=== PATIENT | female | born 1970 | race Caucasian/White ===

== ENCOUNTER 2017-03-04 00:02 | Emergency (ER) | payer OTHER | END 2017-03-04 01:55 | disposition home or self-care (01) | LOC: FER 00:02 | DX: K21.9 Gastro-esophageal reflux disease without esophagitis (principal); F32.9 Major depressive disorder, single episode, unspecified; Z23 Encounter for immunization; Z79.899 Other long term (current) drug therapy; W10.9XXA Fall (on) (from) unspecified stairs and steps, initial encounter | CPT/HCPCS: 73564; 73660; 90471; 90715 ==

== ENCOUNTER 2022-02-28 11:19 | Emergency (ER) | payer OTHER ==
[~2022-02-28 11:19] MED LIST: ONDANSETRON ODT4 MG PO
[2022-02-28 12:15] LABS: EOSINOPHIL 1.8 % (0-5); HCT 45.1 % (37.0-47.0); HGB 15.1 g/dl (12.5-16.0); LYMPHOCYTE 21.2 % (15-48); MCH 32.6 pg (25.0-31.0); MCHC 33.5 g/dL (32.0-36.0); MCV 97.4 fL (78.0-100.0); MPV 11.3 fL (6.0-9.5); NEUTROPHIL 66.6 % (41-80); NRBC 0; PLT 284 K/uL (150-400); RBC 4.63 M/uL (4.20-5.40); RDW 12.7 % (11.5-14.0); WBC 5.1 K/uL (4.0-10.5)
[2022-02-28 12:20] LABS: INR 0.94 (0.9-1.2); PTT 27.9 SECONDS (24.4-34.7)
[2022-02-28 12:33] LABS: ALBUMIN 3.9 g/dL (3.4-5.0); BILIRUBIN - TOTAL 0.5 mg/dL (0.2-1.0); BUN/CREAT RATIO (CALC) 20.7 RATIO; CREATININE 0.87 mg/dL (0.51-0.95); GLOBULIN (CALCULATION) 3.4 g/dL; POTASSIUM 3.7 mmol/L (3.5-5.1); TOTAL PROTEIN 7.3 g/dL (6.4-8.2)
== END 2022-02-28 15:41 | disposition home or self-care (01) ==
LOC: FER 11:19
PROVIDERS: Emergency Medicine
DX: R07.89 Other chest pain (principal)
CPT/HCPCS: 36415; 71045; 80053; 84484; 85025; 85379; 85610; 85730; 93005